=== PATIENT | female | born 1990 | race Caucasian/White ===

== ENCOUNTER 2016-11-18 09:31 | Emergency (ER) | payer MEDICAID ==
[~2016-11-18] VITALS: Ht 165.1 cm; Wt 130.2 kg
[~2016-11-18 09:31] MED LIST: GLUCOPHAGE XR500 MG PO; GLUCOTROL XL5 M1 PO; MOTRIN800 MG PO; PRENATAL1 TA1 PO; TYLENOL325 M1; ULTRAM50 MG PO
[2016-11-18 09:33] VITALS: BP 153/69
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
[2016-11-18 12:49] VITALS: BP 119/70
== END 2016-11-18 12:48 | disposition home or self-care (01) ==
LOC: MED 09:31
PROC: BY49ZZZ Ultrasonography of First Trimester, Single Fetus (ICD-10-PCS; principal; 2016-11-18)
DX: O20.0 Threatened abortion (principal); O23.41 Unspecified infection of urinary tract in pregnancy, first trimester; Z3A.01 Less than 8 weeks gestation of pregnancy; R03.0 Elevated blood-pressure reading, without diagnosis of hypertension; O24.911 Unspecified diabetes mellitus in pregnancy, first trimester; Z79.84 Long term (current) use of oral hypoglycemic drugs; Z36 Encounter for antenatal screening of mother
CPT/HCPCS: 36415; 76801; 76817; 80048; 81001; 81025; 82948; 84702; 85025; 86900; 86901; 87086; 99285; C1758

== ENCOUNTER 2017-03-04 20:08 | Emergency (ER) | payer MEDICAID ==
[~2017-03-04] VITALS: Ht 165.1 cm; Wt 128.4 kg
[~2017-03-04 20:08] MED LIST changes: +ACET-2619; +GLIP5TER PO; -GLUCOPHAGE XR500 MG PO; -GLUCOTROL XL5 M1 PO; +IBUP-974 PO; +METF500T2 PO; -MOTRIN800 MG PO; -PRENATAL1 TA1 PO; +TRAM50TA94 PO; -TYLENOL325 M1; -ULTRAM50 MG PO
[2017-03-04 20:33] VITALS: BP 114/66
--- NOTE | 2017-03-04 21:31 | NUR ---
TO ER OF2
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
--- NOTE | 2017-03-04 21:35 | NUR ---
ER MD DR. PAIGE EVALUATING PT.
[2017-03-04 22:08] VITALS: BP 118/78
--- NOTE | 2017-03-04 22:08 | NUR ---
Patient discharged with v/s stable. Written and verbal after care instructions given and explained. Patient alert, oriented and verbalized understanding of instructions. Ambulatory with steady gait. All questions addressed prior to discharge. ID band removed. Patient advised to follow up with PMD. Rx of NAPROSYN 500MG & VALIUM MG TAB given. Patient educated on indication of medication including possible reaction and side effects. Opportunity to ask questions provided and answered.
== END 2017-03-04 22:08 | disposition home or self-care (01) ==
LOC: MED 20:08
DX: S16.1XXA Strain of muscle, fascia and tendon at neck level, initial encounter (principal); S39.012A Strain of muscle, fascia and tendon of lower back, initial encounter; E11.9 Type 2 diabetes mellitus without complications; V43.52XA Car driver injured in collision with other type car in traffic accident, initial encounter; Y93.I9 Activity, other involving external motion; Y92.488 Other paved roadways as the place of occurrence of the external cause; Y99.8 Other external cause status
CPT/HCPCS: 99283

== ENCOUNTER 2018-08-12 09:01 | Emergency (ER) | payer MEDICAID ==
[~2018-08-12] VITALS: Ht 165.1 cm; Wt 129.8 kg
[~2018-08-12 09:01] MED LIST changes: +TRAM50TA1 PO; -TRAM50TA94 PO
[2018-08-12 09:07] VITALS: BP 127/67
[2018-08-12 09:43] LABS: BASOPHILS % (AUTO) 0.3 % (0.0-2.0); EOSINOPHILS # (AUTO) 0.1 K/uL (0-0.4); EOSINOPHILS % (AUTO) 1.1 % (0.0-4.0); HEMATOCRIT 38.1 % (36-48); HEMOGLOBIN 11.9 g/dL (12.0-16.0); LYMPHOCYTES # (AUTO) 1.7 K/uL (2.5-16.5); LYMPHOCYTES % (AUTO) 18.1 % (20.5-51.1); MEAN CORPUSCULAR HEMOGLOBIN 24 pg (27-31); MEAN CORPUSCULAR HGB CONC 31 g/dL (33-37); MEAN CORPUSCULAR VOLUME 76.1 fL (80-94); MONOCYTES # (AUTO) 0.6 K/uL (0.8-1.0); MONOCYTES % (AUTO) 6.5 % (1.7-9.3); NEUTROPHILS # (AUTO) 6.9 K/uL (1.8-7.7); PLATELET COUNT (AUTO) 341 K/uL (140-450); RED BLOOD CELL COUNT(AUTO) 5.01 MIL/uL (4.20-5.40); RED CELL DISTRIBUTION WIDTH 17.5 % (11.6-13.7); WHITE BLOOD COUNT (AUTO) 9.4 K/uL (4.8-10.8)
[2018-08-12 09:53] LABS: APPEARANCE,URINE CLEAR (CLEAR); BILIRUBIN,URINE NEGATIVE (NEGATIVE); BLOOD, URINE NEGATIVE (NEGATIVE); COLOR,URINE YELLOW (YELLOW); LEUKOCYTE ESTERASE ,URINE NEGATIVE (NEGATIVE); NITRITE, URINE NEGATIVE (NEGATIVE); PH,URINE 5.5 (5.0-9.0); UGLUCOSE 3+ (NEGATIVE)
[2018-08-12 10:13] LABS: RBC,URINE 0-5 (RARE) /HPF (0-5); WBC,URINE 0-5 (RARE) /HPF (0-5)
[2018-08-12 10:14] LABS: YEAST,URINE Few /HPF (None Seen)
[2018-08-12 12:11] VITALS: BP 125/63
== END 2018-08-12 12:11 | disposition home or self-care (01) ==
LOC: MED 09:06
DX: O26.891 Other specified pregnancy related conditions, first trimester (principal); R10.9 Unspecified abdominal pain; M54.9 Dorsalgia, unspecified; O24.911 Unspecified diabetes mellitus in pregnancy, first trimester; Z3A.01 Less than 8 weeks gestation of pregnancy; Z79.891 Long term (current) use of opiate analgesic; Z79.1 Long term (current) use of non-steroidal anti-inflammatories (NSAID); Z79.84 Long term (current) use of oral hypoglycemic drugs; Z79.899 Other long term (current) drug therapy
CPT/HCPCS: 36415; 76817; 81001; 81025; 84702; 85025; 86900; 86901; 87086; 99284; Q0092